=== PATIENT | male | born 1985 | race Caucasian/White ===

== ENCOUNTER 2023-03-08 12:37 | Emergency (ER) | payer OTHER, SELFPAY ==
[2023-03-08 12:39] VITALS: BP 175/87; PULSE 88; RESP 14; TEMP 36.3; O2SAT 96; BMI 47.9
[2023-03-08 13:05] VITALS: PULSE 101; O2SAT 90
[2023-03-08 13:06] VITALS: O2SAT 90
--- NOTE | 2023-03-08 13:19 | RAD_ITS ---
STUDY: X-RAY CHEST REASON FOR EXAM: Male, 37 years old. Cough TECHNIQUE: PA and lateral views of the chest. COMPARISON: None. FINDINGS: Calcified bilateral granulomas. No focal infiltrate is seen. There is no demonstrated pleural abnormality. Normal size heart. Calcified bilateral hilar lymph nodes. Normal visualized pulmonary arteries. Normal visualized aortic arch and descending thoracic aorta. Normal visualized thoracic spine. Normal visualized ribs, clavicles, and shoulders. There is no demonstrated abnormality of the visualized soft tissue structures of the upper abdomen. RAD/Chest PA and Lateral IMPRESSION: No acute abnormality seen. Electronically Signed: Darrick Astorga MD at 13:57 EST ,
--- NOTE | 2023-03-08 13:19 | EX.ED.DYSGE1 ---
HPI History of Present Illness Chief Complaint: Cough Narrative Narrative: Patient is a 37-year-old male who is presenting to the ER with chief complaint of 1.5 weeks of coughing. Patient states that when he gets a coughing spell, he holds his breath, and has a brief sensation of possibly passing out. Patient has not had any syncopal episode. is at bedside. Patient states he has had cough and congestion going on for the past 1.5 weeks. Patient is using Mucinex DM [id number] with little relief. Patient has no headache, no sinus pressure or headache. No chest pain or shortness of breath. No abdominal pain, nausea or vomiting. Patient is not lightheaded or dizzy. Patient is having greenish productive sputum. Patient does have a PCP, patient has not seen his PCP or been evaluated for this. No other acute complaints. PFSH PFSH Medical History no medical history Home Medications albuterol sulfate 90 mcg/actuation aerosol inhaler (Ventolin HFA) 1 - 2 puff inhalation Q4H PRN PRN Wheezing ##1 03/08/23 [Rx Last Taken Unknown] benzonatate 100 mg capsule 200 mg (2 x 100 mg) PO TID PRN PRN Cough #20 CAPSULES 03/08/23 [Rx Last Taken Unknown] lmuglelkmslfhjw-wslpraplalotmuq-FV 2 mg-30 mg-10 mg/5 mL oral syrup (Bromfed DM) 10 ml PO Q6H PRN sinus symptoms #200 mL 03/08/23 [Rx Last Taken Unknown] Allergy/AdvReac Type Severity Reaction Status Date / Time No Known Allergies Allergy Verified 03/08/23 12:40 Social History Smoking Status: Never smoker ROS ROS ED ROS Narrative REVIEW OF SYSTEMS: Unless otherwise stated in this report the patient's positive and negative responses for review of systems for constitutional, eyes, ENT, cardiovascular, respiratory, gastrointestinal, neurological, , musculoskeletal, and integument systems and related systems to the presenting problem are either stated in the history of present illness or were not pertinent or were negative for the symptoms and/or complaints related to the presenting medical problem. EXAM Physical Exam Narrative Exam Narrative: Vital signs reviewed and patient is not hypoxic. General: The patient appears well and in no apparent distress. Patient is resting comfortably on cart. Not toxic, lethargic, or listless. Skin: Warm, dry, no pallor noted. There is no rash noted. Head: Normocephalic, atraumatic Eye: Normal conjunctiva, no drainage, EOMI. PERRL. Ears, Nose, Mouth, and Throat: oral mucosa is moist. Nares patent. Mouth without vesicles. Bilateral TM shows no erythema, perforation or bulging. Mild cobblestoning noted to the posterior pharynx Cardiovascular: Regular Rate and Rhythm, no murmurs, gallops, or rubs Respiratory: Patient is in no distress, no accessory muscle use, lungs are clear to auscultation, no wheezing, rales or rhonchi Back: non-tender, no CVA tenderness bilaterally to percussion. NO CTLS midline or paraspinal tenderness to palpation. GI: Soft, obese, no tenderness to palpation, no masses appreciated. No rebound, guarding, or rigidity noted. Musculoskeletal: The patient has full range of motion of all extremities and joints with no difficulty. Patient has no motor, no sensory deficits. Neurological: A&O x4, normal speech, no focal neurological deficits. Psychiatric: Cooperative Const Vital Signs: 03/08/23 12:39 03/08/23 13:05 03/08/23 13:06 Temperature 97.4 F L Temperature Source Temporal Pulse Rate 88 101 H Respiratory Rate 14 Respiratory Effort Normal Non-Labored Respiratory Depth Normal Respiratory Pattern Normal Blood Pressure 175/87 H Blood Pressure Mean 116 Pulse Ox 96 90 Oxygen Delivery Method Room Air Room Air Room Air 03/08/23 14:01 03/08/23 15:12 03/08/23 15:56 Temperature Temperature Source Pulse Rate 95 100 100 Respiratory Rate 16 18 18 Respiratory Effort Respiratory Depth Respiratory Pattern Normal Blood Pressure 141/78 H Blood Pressure Mean 99 Pulse Ox 92 92 Oxygen Delivery Method Room Air MDM MDM MDM Narrative Medical decision making narrative: Education on vasovagal syncope was done at bedside and on discharge paperwork. Patient needs to do more aggressive symptomatic treatment at home. Patient will follow-up with his PCP if no improvement next week. Patient is only doing Mucinex DM. No questions at discharge. Patient was given education on vasovagal syncope, he has not had a syncopal episode. When patient has a coughing spell, patient's states that he will hold his breath, become slightly red, and patient has a sensation that he might pass out but then he coughs, breathes, and that quickly goes away within a minute. Patient's had no heavy chest pressure or pain. No shortness of breath of significance. Radiography Diagnostic Testing: Clinical Impression(s) from Imaging Studies Chest X-Ray 03/08/23 13:19 IMPRESSION: No acute abnormality seen. Electronically Signed: Darrick Astorga MD at 13:57 EST , Discharge Plan Triage Chief Complaint: Cough ED Provider: Addison Smith Dx/Rx/DC Orders Clinical Impression: Sinus congestion, Cough Instructions: Understanding Your Sinuses, Sinus Problems Dx, Treatment for Vasovagal Syncope, ED Cough Chronic Uncertain Cause Adult, ED Fainting, Vagal Reaction, ED Symptoms Uncertain Cause Prescriptions: New benzonatate [benzonatate] 100 mg capsule 200 mg PO TID PRN PRN (Reason: Cough) Qty: 20 0RF albuterol sulfate [Ventolin HFA] 90 mcg/actuation HFA aerosol inhaler 1 - 2 puff inhalation Q4H PRN PRN (Reason: Wheezing) Qty: 1 0RF jntqhtweyovgmlp-acmcnxctv-JG [Bromfed DM] 2-30-10 mg/5 mL syrup 10 ml PO Q6H PRN (Reason: sinus symptoms) Qty: 200 0RF Stand Alone Forms: ED Work / School Excuse Primary Care Provider: Jerome Quijano Activity Restrictions/Additional Instructions: Use dnuh-bmn-owzjpic DayQuil, NyQuil, Flonase. Alternate Tylenol Motrin every 4 hours Increase fluids Patient a vasovagal syncope was given to you for educational purposes only. Use albuterol inhaler every 4 hours for the next 3 to 5 days Call today to make an appointment with your PCP next week if no improvement, treating symptoms for 7 days in a row no improvement you may need antibiotics next week if still has symptoms Disposition Disposition: Home, Self Care Discharge Date/Time: 03/08/23 16:06
[2023-03-08] MEDS: Albuterol 2.5 MG/3 ML VIAL.NEB. INHALATION (13:57)
[2023-03-08 14:01] VITALS: PULSE 95; RESP 16
[2023-03-08 15:12] VITALS: PULSE 100; RESP 18; O2SAT 92
[2023-03-08 15:56] VITALS: BP 141/78; PULSE 100; RESP 18; O2SAT 92
== END 2023-03-08 16:06 | disposition home or self-care (01) ==
PROVIDERS: Emergency Provider Emergency Medicine; PCP Family Medicine; Referring Provider Emergency Medicine; Visit Provider Emergency Medicine
DX: R09.81 Nasal congestion (principal); R05.9 Cough, unspecified
CPT/HCPCS: 71046; 94640; 99282